=== PATIENT | female | born 1990 ===

== ENCOUNTER 2016-06-30 09:46 | Inpatient (IN) | payer SELFPAY ==
[2016-06-23 11:06] VITALS: BMI 24.2
[2016-06-30] MEDS ORDERED: Propofol 10 mg/ml Inj (20 ML) ONE (14:04)
[2016-06-30] MEDS ORDERED: Midazolam 2 MG/2 ML VIAL ONE (14:04)
[2016-06-30] MEDS ORDERED: DEXTROSE IVPB ONE (14:07)
[2016-06-30] MEDS ORDERED: CEFOXITIN IVPB ONE (14:07)
[2016-06-30] MEDS ORDERED: Vasopressin 20 Units/ml Inj ONE (14:07)
[2016-06-30] MEDS ORDERED: Sodium Chloride 0.9% 60 ML IV ONE (14:09)
[2016-06-30] MEDS ORDERED: Methylene Blue 10 mg/ml (1ml) Inj ONE (14:30)
[2016-06-30] MEDS ORDERED: cefOXitin IV 2 gm in Dextrose 50 ML IVPB ONE (14:30)
[2016-06-30] MEDS ORDERED: Lactated Ringer's 1,000 ML IV ONE ×2 (14:36)
[2016-06-30] MEDS ORDERED: Rocuronium 10 mg/ml (5 ml) ONE (14:36)
[2016-06-30] MEDS ORDERED: Succinylcholine Chloride 20 mg/ml Syr (5 ml) IV ONE (14:43)
[2016-06-30] MEDS ORDERED: Bacitracin 500 Units/gm Oint Foilpak UD ONE (15:26)
[2016-06-30] MEDS: HYDROmorphone 0.5 mg/0.5 ml ISec IVP PRN ×2 (15:44→17:04)
[2016-06-30] MEDS ORDERED: Oxycodone/Acetaminophen 5/325 mg Tab PO PRN (15:51)
[2016-06-30] MEDS: Sodium Chloride 0.9% 1,000 ML IV SCH (17:10)
[2016-07-01] MEDS: Sodium Chloride 0.9% 1,000 ML IV SCH ×2 (01:48→10:05)
[2016-07-01 07:42] LABS: HEMATOCRIT 34.9 % (34.0-47.0); MEAN CELL VOLUME 81.2 fL (81.0-99.0); MEAN CORPUSCULAR HEMOGLOBIN 27.4 pg (27.0-31.0); MEAN CORPUSCULAR HGB CONC 33.7 g/dL (33.0-37.0); MEAN PLATELET VOLUME 10.2 fL (7.2-11.7); RED CELL DISTRIBUTION WIDTH 15.5 % (11.5-14.5)
[2016-07-01 07:49] LABS: WHITE BLOOD COUNT 10.3 K/uL (4.8-10.8)
[2016-07-01 07:53] LABS: CHLORIDE 100 mmol/L (98-107); POTASSIUM 3.6 mmol/L (3.6-5.2); SODIUM 134 mmol/L (132-148)
[2016-07-01 07:56] LABS: BLOOD UREA NITROGEN 8 mg/dL (7-17); CARBON DIOXIDE 23 mmol/L (22-30); GFR AFRICAN-AMERICAN > 60
[2016-07-01 07:57] LABS: CALCIUM 7.5 mg/dl (8.6-10.4); GLUCOSE,RANDOM 101 mg/dL (65-105)
[2016-07-02 07:53] LABS: CHLORIDE 103 mmol/L (98-107)
[2016-07-02 07:56] LABS: ALB/GLOB RATIO 1.2 (1.0-2.1); ALKALINE PHOSPHATASE 53 U/L (38-126); ALT/SGPT 69 U/L (9-52); AST/SGOT 56 U/L (14-36); BILIRUBIN,TOTAL 0.3 mg/dL (0.2-1.3); BLOOD UREA NITROGEN 5 mg/dL (7-17); CARBON DIOXIDE 25 mmol/L (22-30); GFR AFRICAN-AMERICAN > 60; GLUCOSE,RANDOM 101 mg/dL (65-105); POTASSIUM 3.7 mmol/L (3.6-5.2); SODIUM 139 mmol/L (132-148)
[2016-07-02 07:57] LABS: CALCIUM 7.8 mg/dl (8.6-10.4)
[2016-07-02 08:10] VITALS: RESP 18; O2SAT 98
[2016-07-02 08:46] VITALS: BP 115/70; PULSE 84; TEMP 97.9
--- NOTE | 2016-07-02 15:23 | CP.PCM.PN ---
<Sveta Sloan - Last Filed: 07/02/16 15:19> Subjective - Date & Time of Evaluation Date of Evaluation: 07/02/16 Time of Evaluation: 15:20 - Subjective Subjective: OBGYN Progress Note- Dr. Hawkins's service ( Coverage for Dr. Burks) Pt seen and examined in no acute distress. Patient s/p day 2 for myomectomy. Patient denies any nausea, vomiting, diarrhea or current abdominal pain. Patient ambulating without issues and passing gas. Patient inquired about discharge instructions which were re-explained. Objective - Vital Signs/Intake and Output Vital Signs (last 24 hours): Temp Pulse Resp BP Pulse Ox 97.9 F 84 18 115/70 98 07/02/16 08:09 07/02/16 08:09 07/02/16 08:09 07/02/16 08:09 07/02/16 08:09 - Medications Medications: Current Medications Docusate Sodium (Colace) 100 mg PO BID [facility] Last Admin: 07/02/16 10:02 Dose: 100 mg Sodium Chloride (Sodium Chloride 0.9%) 1,000 mls @ 0 mls/hr IV .Q0M [facility] PRN Reason: Per Protocol Last Admin: 07/01/16 10:05 Dose: 125 mls/hr Ibuprofen (Motrin Tab) 600 mg PO Q6H [facility] Last Admin: 07/02/16 10:02 Dose: 600 mg Morphine Sulfate (Morphine) 2 mg IVP Q4 PRN PRN Reason: Pain, severe (8-10) Last Admin: 06/30/16 20:23 Dose: 2 mg Ondansetron HCl (Zofran Inj) 4 mg IVP ONCE PRN PRN Reason: Nausea/Vomiting Last Admin: 06/30/16 21:58 Dose: 4 mg Oxycodone/Acetaminophen (Percocet 5/325 Mg Tab) 1 tab PO Q4 PRN PRN Reason: Pain, severe (8-10) Stop: 07/03/16 15:52 Last Admin: 07/01/16 06:38 Dose: 1 tab - Labs Labs: 07/01/16 07:36 07/02/16 07:10 - Constitutional Appears: Non-toxic, No Acute Distress - Head Exam Head Exam: ATRAUMATIC, NORMAL INSPECTION, NORMOCEPHALIC - Eye Exam Eye Exam: EOMI, Normal appearance, PERRL Pupil Exam: NORMAL ACCOMODATION - ENT Exam ENT Exam: Mucous Membranes Moist - Neck Exam Neck Exam: Full ROM - Respiratory Exam Respiratory Exam: Clear to Ausculation Bilateral, NORMAL BREATHING PATTERN. absent: Wheezes - Cardiovascular Exam Cardiovascular Exam: +S1, +S2. absent: Murmur - GI/Abdominal Exam GI & Abdominal Exam: Soft, Normal Bowel Sounds. absent: Distended, Firm, Guarding, Tenderness Additional comments: midline low transverse incision site c/d/i; steri-strips in place. - Extremities Exam Extremities Exam: Full ROM, Normal Inspection. absent: Calf Tenderness, Pedal Edema, Tenderness - Back Exam Back Exam: Full ROM, NORMAL INSPECTION. absent: muscle spasm, tenderness - Neurological Exam Neurological Exam: Alert, Awake, CN II-XII Intact, Oriented x3 - Psychiatric Exam Psychiatric exam: Normal Affect, Normal Mood - Skin Skin Exam: Dry, Intact, Normal Color, Warm Assessment and Plan (1) S/P myomectomy Assessment & Plan: Patient s/p day 2 myomectomy Patient aaox3 in nad Patient eating, ambulating with no acute complaints Patient to be discharged home with pain medication to be taken as needed. Patient to follow up in office tmrw with Dr. Burks. Discharge instructions reiterated. Status: Acute <Ross,Yaneth A - Last Filed: 07/02/16 20:52> Objective - Vital Signs/Intake and Output Vital Signs (last 24 hours): Temp Pulse Resp BP Pulse Ox 97.9 F 84 18 115/70 98 07/02/16 08:09 07/02/16 08:09 07/02/16 08:09 07/02/16 08:09 07/02/16 08:09 - Labs Labs: 07/01/16 07:36 07/02/16 07:10 Attending/Attestation - Attestation I have personally seen and examined this patient.: Yes I have fully participated in the care of the patient.: Yes I have reviewed all pertinent clinical information, including history, physical exam and plan: Yes Notes (Text): 07/02/16 20:49 I agree with the above SOAP note. 07/02/16 20:52 Discharge instructions, as per Dr. Burks
--- NOTE | 2016-07-07 15:39 | OP ---
PROCEDURE DATE: 06/30/2016 PREOPERATIVE DIAGNOSES: A 26-year-old female with fibroid uterus, menorrhagia, irregular pelvic pain and failure of medical therapy. POSTOPERATIVE DIAGNOSES: A 26-year-old female with fibroid uterus, menorrhagia, irregular pelvic suly n and failure of medical therapy. PROCEDURE: Laparotomy, myomectomy. SURGEON: Dr. Burks TYPE OF ANESTHESIA: General. ESTIMATED BLOOD LOSS: Approximately 50 mL. INTRAVENOUS FLUID: 1 liter. URINE OUTPUT: 200 mL. SPECIMEN: Uterine fibroid. DESCRIPTION OF PROCEDURE: The patient was informed of the risk factors, benefits, and alternatives o f procedure. Risk factors included infection, bleeding, damage to surrounding organs and tissue, com plication from anesthesia. She was also well informed that we are removing the leiomyoma, but does n ot prevent her from having recurrent fibroid. She understood all the risk factors, benefits, and alt ernatives and informed consent was obtained. Once the consent was obtained, she was then taken to [facility] operating room, prepped and draped in normal sterile fashion, placed in dorsal supine position. In that particular time, a Pfannenstiel incision was made with a knife. It was then carried down to [facility] layers of the fascia with a second knife. The fascia was then excised in the midline and extended laterally in both directions with the Robbins scissors. The superior aspect of the fascial incision was then grasped with Juan Antonio clamps, elevated, and the rectus muscle was dissected off bluntly. The waldo e was done to the inferior aspect. Excellent hemostasis was noted. In that particular instance, the peritoneum was identified with Nury clamps, was tented up and entered sharply with the Metzenbaum s cissors. The peritoneal incision was then extended superiorly and inferiorly with the Metzenbaum sci ssors and the uterus was then grasped bluntly and removed from the abdomen. It was noted that she fox d a very large posterior leiomyoma in which 20 units mixed with 50 mL of normal saline and vasopressi n was given. In that particular instance, the point tip cautery was used to cut a linear incision al saranya the top of the fibroid until the fibroid fibers were seen. The edges of the myometrium was grasp ed with an Allis clamp, tented up, and was used to bluntly dissect around the fibroid, followed by blunt dissection with a finger. The fibroid was then easily and bluntly dissected out. It was lazaro black removed and submitted to pathology. So in that particular instance, it was noted that that was t he largest fibroid that she had. Once that was performed, there was trimming of the remaining tissue . The uterine incision was then closed with first 2 interrupted layers of 0 Vicryl in an interrupted [id number] fashion, then a baseball stitch was used with 2-0 Vicryl. Excellent hemostasis was noted. In that particular instance, irrigation was given, excellent hemostasis. The peritoneum was then closed with 2-0 chromic and the muscle was reapproximated with 2-0 chromic as well. The fascia was then closed with 0 Vicryl in a running fashion, the subQ tissue was reapproximated with 2-0 plain and the skin was closed with 4-0 Monocryl. Once it was closed, Steri-Strips were then applied. A b andage was applied appropriately. All instruments and lap count were correct x 2. The patient was lazaro black taken to the recovery room in stable condition and instructed to follow up in the office in 2 wetamra ks. Desiree Burks MD cc: [id number] TT: 07/07/2016 15:38:25 en
== END 2016-07-02 18:15 | disposition home or self-care (01) | DRG 359 ==
LOC: C.SDS 09:46 → C.4M 15:51
PROVIDERS: ADMIT Obstetrics & Gynecology; ATTEND Obstetrics & Gynecology
PROC: 0UB90ZZ Excision of Uterus, Open Approach (ICD-10-PCS; principal; 2016-06-30 14:15)
DX: D25.9 Leiomyoma of uterus, unspecified (principal); R10.2 Pelvic and perineal pain; N92.0 Excessive and frequent menstruation with regular cycle